=== PATIENT | male | born 1995 | race Caucasian/White ===

== ENCOUNTER 2017-01-17 15:06 | Emergency (ER) | payer BC ==
[~2017-01-17] VITALS: Ht 188 cm; Wt 88.6 kg
[2017-01-17 15:14] VITALS: BP 134/66; PULSE 75; TEMP 98.2
== END 2017-01-17 17:39 | disposition home or self-care (01) ==
LOC: COL.ER 15:06
DX: S61.412A Laceration without foreign body of left hand, initial encounter (principal); Z23 Encounter for immunization; W25.XXXA Contact with sharp glass, initial encounter

== ENCOUNTER 2017-01-28 10:29 | Emergency (ER) | payer BC ==
[2017-01-28 10:56] VITALS: BP 112/57; PULSE 56; TEMP 98
== END 2017-01-28 11:09 | disposition home or self-care (01) ==
LOC: COL.ER 10:29
DX: S61.412D Laceration without foreign body of left hand, subsequent encounter (principal); X58.XXXD Exposure to other specified factors, subsequent encounter